=== PATIENT | female | born 1930 | race Caucasian/White ===

== ENCOUNTER → 2017-02-13 | Outpatient (CLI) | payer MEDICARE, BC ==
[2017-02-13 16:43] LABS: HEMOGLOBIN 12.2 g/dL (12.2-16.2); LYMPH # 1.9 K/mm3 (0.7-4.5); LYMPH % 22.9 % (10-50.0)
[2017-02-13 17:53] LABS: BUN 13 mg/dL (7-18)
[2017-02-13 17:56] LABS: GFR (ESTIMATED) 59 ML/MIN (59-)
--- NOTE | 2017-02-13 18:11 | RADIOLOGY REPORT PS360 ---
KNEE-3 VIEWS-LT HISTORY: SWELLING OF LEFT KNEE JOINT ORDERING PHYSICIAN: Pradip Levy MD PATIENT AGE: 87 years COMPARISON: None FINDINGS: There is generalized osteopenia. Minor osteoarthritic changes involving the medial compartment. No fracture or dislocation. No lytic or blastic change. Incidental vascular calcifications are present. IMPRESSION: Mild osteoarthritic change medial compartment
== END ==
LOC: LAB 16:27
PROVIDERS: Internal Medicine Adolescent Medicine
DX: M25.562 Pain in left knee (principal); M25.462 Effusion, left knee

== ENCOUNTER → 2017-02-21 | Outpatient (CLI) | payer MEDICARE, BC ==
--- NOTE | 2017-02-21 16:42 | RADIOLOGY REPORT PS360 ---
MRI-LOW EXT ANY JOINT W/O-LT HISTORY: Left knee pain and swelling SWELLING OF KNEE JOINT, LEFT MEDIAL KNEE PAIN ORDERING PHYSICIAN: Pradip Levy MD PATIENT AGE: 87 years COMPARISON: Radiograph of 02/13/2017 TECHNIQUE: Standard multiplanar multiecho sequences are performed without contrast. FINDINGS: The cruciate ligaments are intact. There is a complex tear involving the posterior horn of the medial meniscus without significant displacement. Posterior horn of the lateral meniscus has a somewhat rounded margin and could be seen with meniscal tears well. The collateral ligaments, patellar tendon, and quadriceps tendon have an unremarkable appearance. There are mild osteoarthritic changes of the medial and lateral compartment as well as the patellofemoral joint. There is a nondisplaced transverse fracture involving the proximal aspect of the tibia medially and posteriorly. This is at the epiphyseal remnant line.. Edema is present in the proximal tibia centrally and medially. Small subcortical cyst is present along the proximal tibia laterally. There is a small knee joint effusion and there is mild thinning of the patellar cartilage. Small Vázquez's cyst is present measuring 4 cm cephalad to caudad and 1.3 cm AP. IMPRESSION: 1. Nondisplaced transverse fracture of the proximal tibia with bone marrow edema. 2. Complex tear involves the posterior horn of the medial meniscus. 3. Rounded off of the edge of the posterior horn of the lateral meniscus which may be seen with meniscal tears. 4. 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 These results were attempted to be called to the referring physician office on 02/21/2017 at 4:33 PM. There was no answer despite multiple attempts.
== END ==
LOC: RAD 14:30
DX: M25.462 Effusion, left knee (principal); M25.562 Pain in left knee